=== PATIENT | male | born 1950 | race Caucasian/White ===

== ENCOUNTER 2022-12-02 14:26 | Outpatient (CLI) | payer MEDICARE | END 2022-12-02 14:27 | disposition home or self-care (01) | LOC: BICRAD 14:26 | PROVIDERS: ATTEND Internal Medicine Hospice and Palliative Medicine | DX: M54.41 Lumbago with sciatica, right side (principal); M47.816 Spondylosis without myelopathy or radiculopathy, lumbar region; M46.06 Spinal enthesopathy, lumbar region; M89.38 Hypertrophy of bone, other site; M25.78 Osteophyte, vertebrae | CPT/HCPCS: 72100; 72170 ==